=== PATIENT | male | born 1970 | race Caucasian/White ===

== ENCOUNTER 2020-07-14 20:24 | Emergency (ER) | payer OTHER ==
--- NOTE | 2020-07-14 21:00 | ED ---
General Adult HPI - General Chief complaint: Chest Pain Stated complaint: Chest Pain Time Seen by Provider: 07/14/20 20:47 Source: patient Mode of arrival: wheelchair Limitations: no limitations - History of Present Illness Initial comments: Dictation was produced using Geni dictation software. please excuse any grammatical, word or spelling errors. Chief Complaint: 49-year-old male presents to the emergency department for chest pain History of Present Illness: Patient is a 49-year-old male denies any medical problems. He states that her for the last 3 hours he's been having some strange chest pain to his left chest. Patient states it began 3 hours ago. No associated diaphoresis or nausea. States that sometimes he gets gas pain. Feels like his pain is worse when he talks. Is not pleuritic. No radiation of symptoms. He reports that is an achy throbbing sensation. He denies that it feels like pressure or ache in his mid sternal chest. History of hypertension diabetes or high cholesterol. Does not smoke. He lives a very active lifestyle. The ROS documented in this emergency department record has been reviewed and confirmed by me. Those systems with pertinent positive or negative responses have been documented in the HPI. All other systems are other negative and/or noncontributory. PHYSICAL EXAM: General Impression: Alert and oriented x3, not in acute distress HEENT: Normocephalic atraumatic, extra-ocular movements intact, pupils equal and reactive to light bilaterally, mucous membranes moist. Cardiovascular: Heart regular rate and rhythm Chest: Able to complete full sentences, no retractions, no tachypnea Abdomen: abdomen soft, non-tender, non-distended, no organomegaly Musculoskeletal: Pulses present and equal in all extremities, no peripheral edema Motor: no focal deficits noted Neurological: CN II-XII grossly intact, no focal motor or sensory deficits noted Skin: Intact with no visualized rashes Psych: Normal affect and mood ED course: 49-year-old male presents with chest pain. Vital signs upon arrival shows heart rate of 52 cumbersome vital signs within acceptable limits. EKG does not show any signs of ischemia or infarction. There does appear to be an isolated T-wave inversion in lead 3. Patient reports he had a cardiac stress test 5 years ago that he reports was normal. There is no old EKG for comparison. He reports having taken 4 baby aspirins at home prior to arrival. Laboratory evaluation obtained. CBC, metabolic panel is unremarkable. Troponins negative. Chest x-ray is nonacute. EKG interpretation: Ventricular rate 48, sinus bradycardia,. 160, QRS 96, QTC 355. No ME prolongation, no QTC prolongation, no ST or T-wave changes noted. Overall, this EKG is unremarkable Disposition options were discussed with patient. Patient would prefer to be discharged to return to emergency department has any worsening symptoms. Patient was observed in the ER for approximately 2 hours with no significant events. Reevaluated at 10 PM. He states that this pain is more noticeable when he abducts his left upper extremity. Patient's clinical presentation is atypical. His only risk factor is his age. High-risk features identified. Patient advised follow-up with primary care physician for outpatient management of symptoms and cardiac stress test. - Related Data Home Medications Medication Instructions Recorded Confirmed Multivitamins, Thera [Multivitamin 1 tab PO DAILY 07/14/20 07/14/20 (formulary)] Allergies Allergy/AdvReac Type Severity Reaction Status Date / Time Iodine and Iodide Containing Allergy Rash/Hives Verified 07/14/20 21:08 Produc shellfish derived [Shellfish] Allergy Anaphylaxis Verified 07/14/20 21:08 Review of Systems ROS Statement: Those systems with pertinent positive or pertinent negative responses have been documented in the HPI. ROS Other: All systems not noted in ROS Statement are negative. Past Medical History Additional Past Medical History / Comment(s): covid 01/05 History of Any Multi-Drug Resistant Organisms: None Reported Past Surgical History: No Surgical Hx Reported Past Psychological History: ADD/ADHD Smoking Status: Former smoker Past Alcohol Use History: Rare Past Drug Use History: None Reported General Exam Limitations: no limitations Course Vital Signs 07/14/20 07/14/20 20:25 21:00 Temperature 98.0 F Pulse Rate 52 L Respiratory 20 16 Rate Blood Pressure 138/78 O2 Sat by Pulse 100 Oximetry Medical Decision Making - Lab Data Result diagrams: 07/14/20 21:14 07/14/20 21:14 Lab Results 07/14/20 07/14/20 07/14/20 Range/Units 21:14 21:14 21:14 WBC 6.9 (3.8-10.6) k/uL RBC 4.89 (4.30-5.90) m/uL Hgb 14.5 (13.0-17.5) gm/dL Hct 41.1 (39.0-53.0) % MCV 84.1 (80.0-100.0) fL MCH 29.6 (25.0-35.0) pg MCHC 35.2 (31.0-37.0) g/dL RDW 12.1 (11.5-15.5) % Plt Count 215 (150-450) k/uL MPV 7.3 Neutrophils % 53 % Lymphocytes % 34 % Monocytes % 8 % Eosinophils % 3 % Basophils % 1 % Neutrophils # 3.6 (1.3-7.7) k/uL Lymphocytes # 2.3 (1.0-4.8) k/uL Monocytes # 0.5 (0-1.0) k/uL Eosinophils # 0.2 (0-0.7) k/uL Basophils # 0.0 (0-0.2) k/uL Sodium 134 L (137-145) mmol/L Potassium 4.0 (3.5-5.1) mmol/L Chloride 103 (98-107) mmol/L Carbon Dioxide 25 (22-30) mmol/L Anion Gap 6 mmol/L BUN 16 (9-20) mg/dL Creatinine 0.73 (0.66-1.25) mg/dL Est GFR (CKD-EPI)AfAm >90 (>60 ml/min/1.73 sqM) Est GFR (CKD-EPI)NonAf >90 (>60 ml/min/1.73 sqM) Glucose 92 (74-99) mg/dL Calcium 9.1 (8.4-10.2) mg/dL Troponin I <0.012 (0.000-0.034) ng/mL Disposition Clinical Impression: Chest pain Disposition: HOME SELF-CARE Condition: Fair Instructions (If sedation given, give patient instructions): Chest Pain (ED) Is patient prescribed a controlled substance at d/c from ED?: No Referrals: Kapil Connelly MD [Primary Care Provider] - 1-2 days Time of Disposition: 22:09
--- NOTE | 2020-07-14 21:15 | XR ---
EXAMINATION TYPE: XR chest 1V portable DATE OF EXAM: 07/14/2020 COMPARISON: NONE HISTORY: Chest pain TECHNIQUE: Single view FINDINGS: Heart and mediastinum are normal. Lungs are clear. Diaphragm is normal. Bony thorax is inta ct. There are chest leads. IMPRESSION: Normal chest.
[2020-07-14 21:29] LABS: Basophils % (A) 1 %; Eosinophils # (A) 0.2 k/uL (0-0.7); Eosinophils % (A) 3 %; HCT 41.1 % (39.0-53.0); HGB 14.5 gm/dL (13.0-17.5); Lymphocytes # (A) 2.3 k/uL (1.0-4.8); Lymphocytes % (A) 34 %; MCH 29.6 pg (25.0-35.0); MCHC 35.2 g/dL (31.0-37.0); MCV 84.1 fL (80.0-100.0); Mean Platelet Volume 7.3; Monocytes # (A) 0.5 k/uL (0-1.0); Monocytes % (A) 8 %; Neutrophils # (A) 3.6 k/uL (1.3-7.7); Neutrophils % (A) 53 %; Platelet Count 215 k/uL (150-450); RBC 4.89 m/uL (4.30-5.90); RDW 12.1 % (11.5-15.5); WBC 6.9 k/uL (3.8-10.6)
[2020-07-14 21:40] LABS: African American GFR (CKD) >90 (>60 ml/min/1.73 sqM); Anion Gap 6 mmol/L; Blood Urea Nitrogen 16 mg/dL (9-20); Calcium 9.1 mg/dL (8.4-10.2); Carbon Dioxide 25 mmol/L (22-30); Chloride 103 mmol/L (98-107); Glucose 92 mg/dL (74-99); Non-African American GFR(CKD) >90 (>60 ml/min/1.73 sqM); Sodium 134 mmol/L (137-145)
[2020-07-14 22:14] VITALS: BP 121/45; PULSE 50; RESP 18; TEMP 97.7
== END 2020-07-14 22:17 | disposition home or self-care (01) ==
LOC: EC 20:24
DX: R07.89 Other chest pain (principal); R14.1 Gas pain; Z86.16 Personal history of COVID-19; Z87.891 Personal history of nicotine dependence
CPT/HCPCS: 36415; 71045; 80048; 84484; 85025; 99285

== ENCOUNTER → 2020-09-19 | Outpatient (CLI) | payer OTHER ==
--- NOTE | 2020-09-19 13:01 | ECHOS ---
STRESS ECHOCARDIOGRAM INDICATIONS: Chest pain BASELINE HEART RATE: 48 BASELINE BLOOD PRESSURE: 109/67 MAXIMUM HEART RATE: 170 MAXIMUM BLOOD PRESSURE: 220/66 85% MPHR: 145 100% MPHR: 170 METS: 15.1 MAXIMUM STAGE REACHED: V TOTAL EXERCISE TIME: 15:01 CLINICAL INFORMATION: Baseline rhythm is a sinus mechanism, rate of 48, normal axis and intervals. Normal echocardiogram. Baseline blood pressure 109/67 mmHg. The patient exercised on Nick protocol for 15 minute 1 seconds reaching peak rate 170 beats per minute which is equal to 100% maximum predicted heart rate. Peak blood pressure 220/66 minutes Hg. Test was terminated secondary to fatigue. There was no chest pain. Electrocardiograph monitoring revealed no evidence of diagnostic ischemic ST deviation. FINDINGS: Baseline echocardiogram revealed normal wall motion. At peak exercise, there was normal wall motion augmentation with no hypokinesis or dyskinesis. CONCLUSION: 1. Excellent exercise tolerance with rare PVCs and no evidence of diagnostic ischemic ST deviation. 2. Normal stress echocardiogram with no evidence of stress-induced ischemia. MMODL / IJN: [id number] /
== END | disposition home or self-care (01) ==
LOC: RADNMMAIN 08:58
PROVIDERS: ATTEND Family Medicine
DX: I49.3 Ventricular premature depolarization (principal)
CPT/HCPCS: 93351

== ENCOUNTER 2020-10-05 08:17 | Day surgery (SDC) | payer OTHER ==
[2020-10-03 09:42] VITALS: BMI 25.7
[~2020-10-05 08:17] MED LIST: LACTATED RINGERS 1,000 ML IV SCH; LIDOCAINE 1% (10MG/ML) FOR IV START INTRADERMA PRN
[2020-10-05 08:36] VITALS: TEMP 97.2
[2020-10-05] MEDS ORDERED: PROPOFOL 10 MG/ML 20 ML VIAL IV ONE (09:22)
[2020-10-05] MEDS ORDERED: LIDOCAINE 1% INJ 10MG/ML (20 ML MDV) ONE (09:22)
--- NOTE | 2020-10-05 09:50 | P.PCN ---
Date of Procedure: 10/05/20 Procedure(s) Performed: BRIEF HISTORY: Patient is a 50-year-old pleasant white male scheduled for an elective colonoscopy as a part of screening for colorectal neoplasia. His father was diagnosed with colon cancer at age 40. PROCEDURE PERFORMED: Colonoscopy. PREOPERATIVE DIAGNOSIS: Screening for colon cancer. IV sedation per Anesthesia. PROCEDURE: After informed consent was obtained, the patient, was brought into the endoscopy unit. IV sedation was administered by Anesthesia under continuous monitoring. Digital rectal examination was normal. Initially the Olympus CF-160 flexible video colonoscope was then inserted in the rectum, gradually advanced into the cecum without any difficulty. Careful examination was performed as the scope was gradually being withdrawn. Ileocecal valve and the appendiceal orifice were visualized and appeared normal. Prep was excellent. Mucosa of the cecum, ascending colon, transverse colon, descending colon, sigmoid colon, and rectum appeared normal. Retroflexion was performed in the rectum and no lesions were seen. The patient tolerated the procedure well. IMPRESSION: Normal-appearing colon from rectum to cecum with no evidence of colorectal neoplasia. RECOMMENDATIONS: Findings of this examination were discussed with the patient as well as his family. He was advised to have a repeat screening coloscopy every 5 years because of family history of colon cancer.
[2020-10-05] MEDS ORDERED: IV FLUID CONTINUATION 400 ML IV ONE (09:51)
[2020-10-05 10:12] VITALS: BP 108/71; PULSE 47; RESP 20
== END 2020-10-05 10:38 | disposition home or self-care (01) ==
LOC: ORWHC2ENDO 08:17
PROVIDERS: ATTEND Internal Medicine Gastroenterology
DX: Z12.11 Encounter for screening for malignant neoplasm of colon (principal); Z80.0 Family history of malignant neoplasm of digestive organs
CPT/HCPCS: G0121; J2001; J2704

== ENCOUNTER → 2020-10-23 | Outpatient (CLI) | payer OTHER | LOC: CPPFTMAIN 08:55 | PROVIDERS: ATTEND Family Medicine | DX: R06.00 Dyspnea, unspecified (principal) | CPT/HCPCS: 94060; 94726; 94729 ==

== ENCOUNTER 2022-08-21 11:54 | Observation (INO) | payer OTHER ==
[2022-08-21] MEDS ORDERED: ASPIRIN 81 MG PO STA (12:19)
[2022-08-21] MEDS ORDERED: NITROGLYCERIN OINT 1 INCH/GM PACKET TOPICAL STA (12:19)
--- NOTE | 2022-08-21 12:21 | ED ---
General Adult HPI - General Chief complaint: Chest Pain Stated complaint: Chest Pain Time Seen by Provider: 08/21/22 12:06 Source: patient, RN notes reviewed Mode of arrival: ambulatory Limitations: no limitations - History of Present Illness Initial comments: Patient is a pleasant 51-year-old male presenting to the emergency department with concern with chest discomfort. Onset of symptoms was around 7:30 this morning. Symptoms have somewhat improved since that time. Discomfort is currently 2 or 3/10. Discomfort feels like pressure left sternal region. No radiation. No associated dyspnea. No nausea. No diaphoresis. Patient did have similar symptoms a couple of years ago with negative workup at that time. - Related Data Home Medications Medication Instructions Recorded Confirmed No Known Home Medications 10/03/20 08/21/22 Allergies Allergy/AdvReac Type Severity Reaction Status Date / Time Iodine and Iodide Containing Allergy Rash/Hives Verified 08/21/22 13:37 Produc shellfish derived [Shellfish] Allergy Anaphylaxis Verified 08/21/22 13:37 Review of Systems ROS Statement: Those systems with pertinent positive or pertinent negative responses have been documented in the HPI. ROS Other: All systems not noted in ROS Statement are negative. Constitutional: Denies: fever Eyes: Denies: eye pain ENT: Denies: ear pain Respiratory: Denies: dyspnea Cardiovascular: Reports: as per HPI, chest pain Endocrine: Denies: fatigue Gastrointestinal: Denies: abdominal pain, nausea Genitourinary: Denies: dysuria Musculoskeletal: Denies: back pain Skin: Denies: rash Past Medical History Additional Past Medical History / Comment(s): covid 01/05 History of Any Multi-Drug Resistant Organisms: None Reported Past Surgical History: Orthopedic Surgery Past Psychological History: ADD/ADHD Smoking Status: Former smoker Past Alcohol Use History: Rare Past Drug Use History: None Reported General Exam Limitations: no limitations General appearance: alert, in no apparent distress Head exam: Present: normocephalic Eye exam: Present: normal appearance Neck exam: Present: normal inspection Respiratory exam: Present: normal lung sounds bilaterally. Absent: chest wall tenderness Cardiovascular Exam: Present: regular rate, normal rhythm, bradycardia, normal heart sounds Expanded Peripheral pulses: 2+: Radial (R), Radial (L), Posterior Tibialis (R), Posterior Tibialis (L) GI/Abdominal exam: Present: soft. Absent: tenderness Extremities exam: Present: normal inspection. Absent: pedal edema, calf tenderness Neurological exam: Present: alert Psychiatric exam: Present: normal affect, normal mood Skin exam: Present: normal color Course Vital Signs 08/21/22 12:01 Temperature 98.9 F Pulse Rate 47 L Respiratory 20 Rate Blood Pressure 141/75 O2 Sat by Pulse 97 Oximetry EKG Findings - EKG Results: EKG: interpreted by ERMD, sinus rhythm, normal axis, normal QRS, normal ST/T EKG shows: bradycardia Medical Decision Making - Medical Decision Making Was pt. sent in by a medical professional or institution (, [facility], [facility], urgent care, hospital, or care home...) When possible be specific @ -No Did you speak to anyone other than the patient for history (EMS, parent, family, police, friend...)? What history was obtained from this source @ -No Did you review nursing and triage notes (agree or disagree)? Why? @ -I reviewed and agree with nursing and triage notes Were old charts reviewed (outside hosp., previous admission, EMS record, old EKG, old radiological studies, urgent care reports/EKG's, care home records)? Report findings @ -No old charts were reviewed Differential Diagnosis (chest pain, altered mental status, abdominal pain women, abdominal pain men, vaginal bleeding, weakness, fever, dyspnea, syncope, head ache, dizziness, GI bleed, back pain, seizure, CVA, palpatations, mental health)? @ -Differential Chest Pain: Stable Angina, Unstable Angina, STEMI, NSTEMI Aortic Dissection, Pneumothorax, Musculoskeletal, Esophageal Spasm GERD, Cholecystitis, Pancreatitis, Zoster, this is not meant to be an all-inclusive list. EKG interpreted by me (3pts min.). @ -As above X-rays interpreted by me (1pt min.). @ -Chest x-ray shows no acute process CT interpreted by me (1pt min.). @ -None done U/S interpreted by me (1pt. min.). @ -None done What testing was considered but not performed or refused? (CT, X-rays, U/S, labs)? Why? @ -None What meds were considered but not given or refused? Why? @ -None Did you discuss the management of the patient with other professionals (professionals i.e. , [facility], [facility], lab, RT, psych nurse, social media marketing manager, shared services manager, teacher, air control/anti air warfare officer, rn field case manager)? Give summary @ -Case was discussed with Dr. Dudley, who will admit covering hospital call Was smoking cessation discussed for >3mins.? @ -No Was critical care preformed (if so, how long)? @ -No Were there social determinants of health that impacted care today? How? (Homelessness, low income, unemployed, alcoholism, drug addiction, transportation, low edu. Level, literacy, decrease access to med. care, skilled nursing, rehab)? @ -No Was there de-escalation of care discussed even if they declined (Discuss DNR or withdrawal of care, Hospice)? DNR status @ -No What co-morbidities impacted this encounter? (DM, HTN, Smoking, COPD, CAD, Cancer, CVA, ARF, Chemo, Hep., AIDS, mental health diagnosis, sleep apnea, morbid obesity)? @ -None Was patient admitted / discharged? Hospital course, mention meds given and route, prescriptions, significant lab abnormalities, going to OR and other pertinent info. @ -Patient reevaluated. Patient slightly improved. Patient is updated on results and plan. Patient will be admitted for cardiac Undiagnosed new problem with uncertain prognosis? @ -No Drug Therapy requiring intensive monitoring for toxicity (Heparin, Nitro, Insulin, Cardizem)? @ -No Were any procedures done? @ -No Diagnosis/symptom? @ -Chest pain Acute, or Chronic, or Acute on Chronic? @ -Acute Uncomplicated (without systemic symptoms) or Complicated (systemic symptoms)? @ -default Side effects of treatment? @ -No Exacerbation, Progression, or Severe Exacerbation? @ -No Poses a threat to life or bodily function? How? (Chest pain, [place], [place], pneumonia, PE, COPD, DKA, ARF, appy, cholecystitis, CVA, Diverticulitis, Homicidal, Suicidal, threat to staff... and all critical care pts) @ -No - Lab Data Result diagrams: 08/21/22 12:29 08/21/22 12:29 Lab Results 08/21/22 08/21/22 08/21/22 Range/Units 12:29 12:29 12:29 WBC 5.6 (3.8-10.6) k/uL RBC 4.78 (4.30-5.90) m/uL Hgb 14.0 (13.0-17.5) gm/dL Hct 41.0 (39.0-53.0) % MCV 85.9 (80.0-100.0) fL MCH 29.3 (25.0-35.0) pg MCHC 34.1 (31.0-37.0) g/dL RDW 12.4 (11.5-15.5) % Plt Count 204 (150-450) k/uL MPV 7.4 Neutrophils % 59 % Lymphocytes % 30 % Monocytes % 6 % Eosinophils % 3 % Basophils % 0 % Neutrophils # 3.3 (1.3-7.7) k/uL Lymphocytes # 1.7 (1.0-4.8) k/uL Monocytes # 0.3 (0-1.0) k/uL Eosinophils # 0.1 (0-0.7) k/uL Basophils # 0.0 (0-0.2) k/uL PT 10.6 (9.0-12.0) sec INR 1.0 (<1.2) APTT 24.9 (22.0-30.0) sec Sodium 137 (137-145) mmol/L Potassium 4.0 (3.5-5.1) mmol/L Chloride 106 (98-107) mmol/L Carbon Dioxide 23 (22-30) mmol/L Anion Gap 8 mmol/L BUN 10 (9-20) mg/dL Creatinine 0.60 L (0.66-1.25) mg/dL Est GFR (CKD-EPI)AfAm >90 (>60 ml/min/1.73 sqM) Est GFR (CKD-EPI)NonAf >90 (>60 ml/min/1.73 sqM) Glucose 96 (74-99) mg/dL Calcium 9.8 (8.4-10.2) mg/dL Magnesium 1.9 (1.6-2.3) mg/dL Total Bilirubin 0.6 (0.2-1.3) mg/dL AST 31 (17-59) U/L ALT 26 (4-49) U/L Alkaline Phosphatase 66 (38-126) U/L Troponin I (0.000-0.034) ng/mL Total Protein 7.1 (6.3-8.2) g/dL Albumin 4.0 (3.5-5.0) g/dL 08/21/22 Range/Units 12:29 WBC (3.8-10.6) k/uL RBC (4.30-5.90) m/uL Hgb (13.0-17.5) gm/dL Hct (39.0-53.0) % MCV (80.0-100.0) fL MCH (25.0-35.0) pg MCHC (31.0-37.0) g/dL RDW (11.5-15.5) % Plt Count (150-450) k/uL MPV Neutrophils % % Lymphocytes % % Monocytes % % Eosinophils % % Basophils % % Neutrophils # (1.3-7.7) k/uL Lymphocytes # (1.0-4.8) k/uL Monocytes # (0-1.0) k/uL Eosinophils # (0-0.7) k/uL Basophils # (0-0.2) k/uL PT (9.0-12.0) sec INR (<1.2) APTT (22.0-30.0) sec Sodium (137-145) mmol/L Potassium (3.5-5.1) mmol/L Chloride (98-107) mmol/L Carbon Dioxide (22-30) mmol/L Anion Gap mmol/L BUN (9-20) mg/dL Creatinine (0.66-1.25) mg/dL Est GFR (CKD-EPI)AfAm (>60 ml/min/1.73 sqM) Est GFR (CKD-EPI)NonAf (>60 ml/min/1.73 sqM) Glucose (74-99) mg/dL Calcium (8.4-10.2) mg/dL Magnesium (1.6-2.3) mg/dL Total Bilirubin (0.2-1.3) mg/dL AST (17-59) U/L ALT (4-49) U/L Alkaline Phosphatase (38-126) U/L Troponin I <0.012 (0.000-0.034) ng/mL Total Protein (6.3-8.2) g/dL Albumin (3.5-5.0) g/dL Disposition Clinical Impression: Chest pain Disposition: ADMITTED IP TO THIS [facility] Is patient prescribed a controlled substance at d/c from ED?: No Referrals: Stachoazak,Martínez, NISHA [REFERRING] - 1-2 days Time of Disposition: 14:37
[2022-08-21 12:37] LABS: Basophils % (A) 0 %; Eosinophils # (A) 0.1 k/uL (0-0.7); Eosinophils % (A) 3 %; Lymphocytes # (A) 1.7 k/uL (1.0-4.8); Lymphocytes % (A) 30 %; MCH 29.3 pg (25.0-35.0); MCHC 34.1 g/dL (31.0-37.0); MCV 85.9 fL (80.0-100.0); Mean Platelet Volume 7.4; Monocytes # (A) 0.3 k/uL (0-1.0); Monocytes % (A) 6 %; Neutrophils # (A) 3.3 k/uL (1.3-7.7); Neutrophils % (A) 59 %; Platelet Count 204 k/uL (150-450); RBC 4.78 m/uL (4.30-5.90); RDW 12.4 % (11.5-15.5); WBC 5.6 k/uL (3.8-10.6)
[2022-08-21 12:48] LABS: ALT 26 U/L (4-49); AST 31 U/L (17-59); African American GFR (CKD) >90 (>60 ml/min/1.73 sqM); Alkaline Phosphatase 66 U/L (38-126); Anion Gap 8 mmol/L; Blood Urea Nitrogen 10 mg/dL (9-20); Calcium 9.8 mg/dL (8.4-10.2); Carbon Dioxide 23 mmol/L (22-30); Chloride 106 mmol/L (98-107); Glucose 96 mg/dL (74-99); Magnesium 1.9 mg/dL (1.6-2.3); Non-African American GFR(CKD) >90 (>60 ml/min/1.73 sqM); Sodium 137 mmol/L (137-145); Total Bilirubin 0.6 mg/dL (0.2-1.3); Total Protein 7.1 g/dL (6.3-8.2)
[2022-08-21 12:52] LABS: Partial Thromboplastin Time 24.9 sec (22.0-30.0); Prothrombin Time 10.6 sec (9.0-12.0)
--- NOTE | 2022-08-21 12:52 | XR ---
EXAMINATION TYPE: XR chest 2V DATE OF EXAM: 08/21/2022 12:48 PM COMPARISON: Chest radiographs from 07/14/2020 TECHNIQUE: XR chest 2V Frontal and lateral views of the chest. CLINICAL INDICATION:Male, 51 years old with history of Chest Pain; FINDINGS: Lungs/Pleura: There is no evidence of pleural effusion, focal consolidation, or pneumothorax. Pulmonary vascularity: Unremarkable. Heart/mediastinum: Cardiomediastinal silhouette is prominent in size. Musculoskeletal: No acute osseous pathology. IMPRESSION: No acute cardiopulmonary disease/process.
[2022-08-21] MEDS ORDERED: NITROGLYCERIN SL TABS 0.4 MG TAB SUBLINGUAL PRN (14:39)
--- NOTE | 2022-08-21 17:05 | P.HPIM ---
History of Present Illness H&P Date: 08/21/22 History of Presenting Illness: Patient is a very pleasant 51-year-old male with no reported past medical history. He presented to the emergency department with a chief complaint of chest pain/discomfort. 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 Patient describes this pain as a dull pressure-like sensation. He denies having any associated symptoms including diaphoresis, headache, lightheadedness, dizziness, palpitations, shortness of breath, cough or congestion, abdominal pain, nausea, vomiting, or experiencing any numbness/tingling/weakness/swelling in his extremities. 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 Patient reports he is under typical stress but denies a nything significant or unmanageable at this time. Patient reports he had an episode similar to this a couple years ago and underwent a stress test and echocardiogram by Dr. Toro and everything turned out great. Patient reports pain is rated about a 1-2 /10 at this time. Patient underwent full evaluation in the emergency department. Vital signs upon arrival blood pressure 141/75, heart rate 47, respiratory rate 20, temp 98.9F, SpO2 of 97% on room air. EKG completed showing sinus bradycardia at 42 bpm with no noted T wave or ST abnormality showing no signs of acute ischemia. Chest x-ray completed, lungs appear clear, radiology report negative for acute cardiopulmonary process. Labs completed and reviewed. CBC, coags, and CMP were unremarkable showing no abnormalities. Troponin negative at less than 0.012. Discussed with ED physician. Patient to be admitted under our services to observation unit with telemetry. Consult placed to cardiology. Heart score 1-2 based upon age and history of previous nicotine use, low risk 0.9-1.7% of MACE within the next 30 days. Review of systems: Pertinent positives and negatives as discussed in HPI, a complete review of systems was performed and all other systems are negative. Physical exam: Vital signs reviewed and stable. General: Nontoxic, no distress and appears stated age. Athletic build. Derm: Skin warm and dry, normal coloration for ethnicity. Head: Atraumatic, normocephalic and symmetric. Eyes: EOMs intact, no lid lag, and anicteric sclera Mouth: no lip lesions, mucus membranes moist Cardiovascular: Bradycardic rate, regular rhythm with normal S1S2, no murmur, positive posterior tibial pulses bilaterally, and cap refill < 2 seconds. Lungs: Respirations even, regular, and unlabored on room air. Lungs CTA isabella aterally, no rhonchi, no rales, no wheezing, and no accessory muscle usage. Abdominal: soft, nontender to palpation, no guarding, no appreciable organomegaly Ext: ROM intact. No gross muscle atrophy, no edema, no contractures Neuro: Speech clear, face symmetrical and CN II-XII grossly intact with no noted focal neuro deficits Psych: Alert and oriented to person, place, time, and situation. Appropriate and pleasant affect. Assessment and Plan of Care: Chest pain, rule out acute coronary event Asymptomatic Sinus bradycardia -Vital signs upon arrival blood pressure 141/75, heart rate 47, respiratory rate 20, temp 98.9F, SpO2 of 97% on room air. -EKG completed showing sinus bradycardia at 42 bpm with no noted T wave or ST abnormality showing no signs of acute ischemia. -Chest x-ray completed, lungs appear clear, radiology report negative for acute cardiopulmonary process. -Labs completed and reviewed. CBC, coags, and CMP were unremarkable showing no abnormalities. Troponin negative at less than 0.012. -Discussed in detail with ED provider, patient to be admitted under our services to observation unit with telemetry. -Cardiology consulted, appreciate further recommendations -Telemetry monitoring -Trend troponins -Cardiac diet, NPO at midnight -Order placed for daily Aspirin 325 mg by mouth daily and atorvastatin 40 mg nightly pending further results. -Continue nitroglycerin sublingual tablets every 5 minutes as needed for reports of chest pain/discomfort. -Lipid profile with a.m. labs. Heart score 1-2 based upon age and history of previous nicotine use, low risk 0.9-1.7% of MACE within the next 30 days. The patient is admitted with an anticipated less than 2 midnight stay for evaluation of []. CODE STATUS: Full code DVT prophylaxis: Lovenox Discussed with: Patient, RN, ED physician Anticipated discharge date: [address]: Home Patient was seen independently by Nurse Practitioner. This document was prepared using [employer] dictation software. Please allow for errors in hydro excavation operator while rare they do occur. Patrick Olsen NP rendered care for this patient independently, reviewed the findings and plan as documented in the note above. I did not physically speak with or examine the patient on this date. Past Medical History Additional Past Medical History / Comment(s): covid 01/05 History of Any Multi-Drug Resistant Organisms: None Reported Past Surgical History: Orthopedic Surgery Past Psychological History: ADD/ADHD Smoking Status: Former smoker Past Alcohol Use History: Rare Past Drug Use History: None Reported Medications and Allergies Home Medications Medication Instructions Recorded Confirmed Type No Known Home Medications 10/03/20 08/21/22 History Allergies Allergy/AdvReac Type Severity Reaction Status Date / Time Iodine and Iodide Containing Allergy Rash/Hives Verified 08/21/22 13:37 Produc shellfish derived [Shellfish] Allergy Anaphylaxis Verified 08/21/22 13:37 Physical Exam Vitals: Vital Signs Temp Pulse Resp BP Pulse Ox 08/21/22 14:40 97.9 F 42 L 18 131/74 97 08/21/22 12:01 98.9 F 47 L 20 141/75 97 Intake and Output 08/21/22 08/21/22 08/21/22 06:59 14:59 22:59 Other: Weight 86.183 kg Results CBC & Chem 7: 08/21/22 12:29 08/21/22 12:29 Labs: Abnormal Lab Results - Last 24 Hours (Table) 08/21/22 Range/Units 12:29 Creatinine 0.60 L (0.66-1.25) mg/dL
[2022-08-21] MEDS ORDERED: MELATONIN 3 MG TABLET PO PRN (17:49)
[2022-08-21] MEDS ORDERED: ACETAMINOPHEN TAB 325 MG TAB PO PRN (17:49)
[2022-08-21] MEDS ORDERED: NITROGLYCERIN OINT 1 INCH/GM PACKET TOPICAL SCH (18:00)
[2022-08-21 19:50] VITALS: BP 130/72; PULSE 47; RESP 16; TEMP 97.8
[2022-08-21] MEDS ORDERED: ATORVASTATIN 40 MG TAB PO SCH (21:00)
[2022-08-22] MEDS ORDERED: ASPIRIN 325 MG TAB PO SCH (09:00)
[2022-08-22] MEDS ORDERED: ENOXAPARIN 40 MG/0.4 ML SYRINGE SQ SCH (09:00)
--- NOTE | 2022-08-22 16:41 | P.DS ---
Providers Date of admission: 08/21/22 14:39 Expected date of discharge: 08/22/22 Attending physician: Ingrid Robert MD Consults: 08/21/22 14:39 Consult Physician Urgent Consulting Provider: Jeffrey Blackburn Consult Reason/Comments: cp Do you want consulting provider notified?: Yes Primary care physician: Kapil Conley [facility] Course: THIS IS NOT A DISCHARGE SUMMARY BUT A SUMMARY OF CARE PER DOCUMENTATION IN CHART, PT LEFT AGAINST MEDICAL ADVICE on 08/21/22 at 7:49 PM Chest pain Asymptomatic bradycardia Hospital Course: Patient is a very pleasant 51-year-old male with no reported past medical history. He presented to the emergency department with a chief complaint of chest pain/discomfort. 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 Patient describes this pain as a dull pressure-like sensation. He denies having any associated symptoms including diaphoresis, headache, lightheadedness, dizziness, palpitations, short ness of breath, cough or congestion, abdominal pain, nausea, vomiting, or experiencing any numbness/tingling/weakness/swelling in his extremities. 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 Patient reports he is under typical stress but denies anything significant or unmanageable at this time. Patient reports he had an episode similar to this a couple years ago and underwent a stress test and echocardiogram by Dr. Toro and everything turned out great. Patient reports pain is rated about a 1-2 /10 at this time. Patient underwent full evaluation in the emergency department. Vital signs upon arrival blood pressure 141/75, heart rate 47, respiratory rate 20, temp 98.9F, SpO2 of 97% on room air. EKG completed showing sinus bradycardia at 42 bpm with no noted T wave or ST abnormality showing no signs of acute ischemia. Chest x-ray completed, lungs appear clear, radiology report negative for acute cardiopulmonary process. Labs completed and reviewed. CBC, coags, and CMP were unremarkable showing no abnormalities. Troponin negative at less than 0.012. Patient was admitted under our services of consultation to cardiology. Troponins were trended all resulting negative at less than 0.0123 draws. Per nursing documentation patient signed out AGAINST MEDICAL ADVICE on 08/21/22 at 7:49 PM with documented stable vital signs of blood pressure 130/72, heart rate 47, respiratory rate 16, temp 97.8F, and pulse ox of 97% on room air. Per documentation patient left reporting no pain and showing no signs of acute distress. PT LEFT AGAINST MEDICAL ADVICE on 08/21/22 at 7:49 PM This document was prepared using [employer] dictation software. Please allow for errors in head kiln operator while rare they do occur. I reviewed the documentation as provided by the ELOISE above, who is the original author of this note. I agree with the documented assessment and plan, with the following changes: none Patient Condition at Discharge: Undetermined Plan - Discharge Summary New Discharge Prescriptions: No Action No Known Home Medications Discharge Medication List No Known Home Medications 10/03/20 [History] Follow up Appointment(s)/Referral(s): Martínez Maurice PAC [REFERRING] - 1-2 days Discharge Disposition: LEFT AGAINST MEDICAL ADVICE
== END 2022-08-21 20:04 | disposition left against medical advice (07) ==
LOC: EC 11:54 → SUPCPDRO 11:54 → 6NMEDSUR 14:39
PROVIDERS: ADMIT Family Medicine; ATTEND Family Medicine
DX: I49.5 Sick sinus syndrome (principal); Z53.29 Procedure and treatment not carried out because of patient's decision for other reasons; Z86.16 Personal history of COVID-19; F90.9 Attention-deficit hyperactivity disorder, unspecified type; Z87.891 Personal history of nicotine dependence; Z91.041 Radiographic dye allergy status; Z91.014 Allergy to mammalian meats
CPT/HCPCS: 99285; 36415; 93005; 80053; 83735; 84484; 85025; 85610; 85730; 71046; G0378

== ENCOUNTER → 2024-04-19 | Outpatient (CLI) | payer OTHER ==
--- NOTE | 2024-04-19 13:37 | CA ---
Exercise Stress Test Report Name: Mau Gary Exam Date: 04/19/2024 08:47 Exam Location: [facility] Ht (in): 71 Wt (lb): 190 BSA: 2.06 Ordering Phys: Martínez Maurice Referring Phys: Martínez Maurice Technologist: TEOFILO WYNN Age: 53 Gender: M : 1970 Procedure CPT: Indications: Z82.49 FAMILY HX OF ISCHEMIC HEART DISEASE; Z82.49 Family hx of ischemic heart disease localized edema ICD-10 Codes: Patient History: Medications: NONE,,, Meds past 24 hrs: Pretest Chest Pain: STRESS TEST Nick Protocol Exercise Duration (min:sec): 12:[address] Depressions (mm): 0 Angina Score: 0 Conklin Score: 12.2 Resting HR (bpm): 57 Peak HR (bpm): 163 Resting BP (mmHg): 110 / 72 Peak BP (mmHg): 186 / 66 MPHR: 167 Target HR: 142 % MPHR: 98 METS: 12.4 Total Dose: Peak Dose: Atropine: Double Product: 21988 BP Response: Stress Termination: TARGET HR REACHED/MAX EXERTION Stress Symptoms: NO SYMPTOMS Stress Summary: The patient's target heart rate was achieved ECG ANALYSIS Resting ECG: Sinus rhythm. Normal conduction. No arrhythmias. Normal repolarization. Stress ECG: No ECG evidence of ischemia with exercise. Ventricular premature contraction. CONCLUSIONS Patient falls into low-risk group (DTS >= +5). This associates the patient with an annual CV mortality <= 0.5%. Excellent exercise tolerance with normal electrocardiographic sponsor exercise and rare PVCs Normal electrocardiographic response to exercise with no evidence of stress-induced ischemia. Dr. Tre Toro MD (Electronically Signed) Final Date: 19 April 2024 13:36
== END | disposition home or self-care (01) ==
LOC: RADNMMAIN 08:20
PROVIDERS: ATTEND Physician Assistant
DX: R60.0 Localized edema (principal); Z82.49 Family history of ischemic heart disease and other diseases of the circulatory system
CPT/HCPCS: 93017